=== PATIENT | male | born 2000 | race Hispanic/Latino ===

== ENCOUNTER 2020-10-21 16:22 | Emergency (ER) | payer MEDICAID ==
[~2020-10-21] VITALS: Ht 177.8 cm; Wt 95.3 kg
[~2020-10-21 16:22] MED LIST: BACTROBAN2 % EX
[2020-10-21 18:30] VITALS: BP 121/67
[2020-10-21] MEDS ORDERED: CLINDAMYCIN300 M1 PO (18:32)
== END 2020-10-21 18:30 | disposition home or self-care (01) ==
LOC: ED 16:22
DX: S81.012D Laceration without foreign body, left knee, subsequent encounter (principal); X58.XXXD Exposure to other specified factors, subsequent encounter

== ENCOUNTER 2020-11-30 01:43 | Emergency (ER) | payer MEDICAID ==
[~2020-11-30] VITALS: Ht 185.4 cm; Wt 97.0 kg
[~2020-11-30 01:43] MED LIST changes: +CLINDAMYCIN300 M1 PO
[2020-11-30] MEDS ORDERED: ULTRAM50 M1 PO (04:25)
[2020-11-30] MEDS ORDERED: KEFLEX500 MG PO (04:25)
[2020-11-30 04:36] VITALS: BP 128/74
== END 2020-11-30 04:50 | disposition home or self-care (01) ==
LOC: ED 01:43
DX: S61.511A Laceration without foreign body of right wrist, initial encounter (principal); S66.324A Laceration of extensor muscle, fascia and tendon of right ring finger at wrist and hand level, initial encounter; V86.95XA Unspecified occupant of 3- or 4- wheeled all-terrain vehicle (ATV) injured in nontraffic accident, initial encounter; Y93.I9 Activity, other involving external motion; Y92.007 Garden or yard of unspecified non-institutional (private) residence as the place of occurrence of the external cause